=== PATIENT | female | born 1955 | race Caucasian/White ===

== ENCOUNTER → 2018-02-14 | Outpatient (CLI) | payer BC ==
--- NOTE | 2018-02-14 13:25 | RAD ---
Examination: Right ankle, three views History: Ankle pain Findings: There is no evidence for fracture, dislocation or mortise joint asymmetry. The tibiotalar a rticular surfaces are smooth and well defined. Impression: No acute or significant findings. Reported By:
== END ==
LOC: RAD 12:53
PROVIDERS: ATTEND Nurse Practitioner Family
DX: Z71.89 Other specified counseling (principal)
CPT/HCPCS: 73610